=== PATIENT | female | born 1960 | race Caucasian/White ===

== ENCOUNTER 2017-08-05 18:55 | Inpatient (IN) | payer OTHER ==
[~2017-08-05] VITALS: Ht 165.1 cm; Wt 64.3 kg
[~2017-08-05 18:55] MED LIST: FLUTICASONE PRO16 GM; HYDROCODON-ACE1 EAC7 PO; KEFLEX500 MG PO; NAPROSYN500 MG PO; VALIUM5 MG PO; VENLAFAXINE H37.5 M3; VENTOLIN HFA18 GM IH
[2017-08-05 19:57] LABS: HEMATOCRIT 40.3 % (36.0-46.0); HEMOGLOBIN 13.9 G/DL (11.9-15.5); MCH 31.2 PG (29.0-34.0); MCHC 34.5 G/DL (30.0-36.0); MCV 90.6 FL (83-99); PLATELET COUNT 179 K/uL (156-360); RBC DIS.WIDTH-CV 13.2 % (11.8-14.6); RBC DIS.WIDTH-SD 43.5 % (39-53); RED BLOOD COUNT 4.45 M/uL (3.80-5.20); WHITE BLOOD COUNT 5.2 K/uL (4.1-10.2)
[2017-08-05 20:09] LABS: ALBUMIN 4.8 g/dL (3.2-4.8)
[2017-08-05 20:10] LABS: CHLORIDE 106 mEq/L (99-109); POTASSIUM 4.2 mEq/L (3.7-5.4); SODIUM 140 mEq/L (136-147)
[2017-08-05 20:12] LABS: GLUCOSE 109 mg/dL (70-99); TOTAL PROTEIN 7.8 g/dL (6.4-8.3)
[2017-08-05 20:14] LABS: TOTAL BILIRUBIN 0.7 mg/dL (0.0-1.0)
[2017-08-05 20:15] LABS: ALKALINE PHOSPHATASE 278 IU/L (3-129)
[2017-08-05 20:16] LABS: CREATININE 0.9 mg/dL (0.6-1.3); GFR ESTIMATE (CALCULATED) > 59 mL/min/
[2017-08-05 20:17] LABS: AST (GOT) 71 IU/L (2-34); UREA NITROGEN (BUN) 17 mg/dL (9-23)
[2017-08-05 20:19] LABS: ALT (GPT) 130 IU/L (3-49)
[2017-08-05 20:29] LABS: QUANTITATIVE HCG < 4.0 MIU/ML
[2017-08-05 21:16] LABS: APPEARANCE CLOUDY ((CLEAR)); BILIRUBIN NEGATIVE; BLOOD NEGATIVE; COLOR AMBER ((YELLOW)); GLUCOSE (STRIP) NEGATIVE; KETONES 5; LEUKOCYTES MODERATE; NITRITE NEGATIVE; PROTEIN (STRIP) 100; SPECIFIC GRAVITY 1.029 (1.000-1.030)
[2017-08-05 21:59] LABS: EPITHELIAL CELLS 1+ /HPF; RED BLOOD CELLS 0-5 /HPF (0-5)
[2017-08-05 22:00] LABS: BACTERIA 2+ /HPF; MUCUS RARE /LPF; UCUL ADDED? YES
[2017-08-05 22:01] LABS: CALCIUM OXALATE CRYSTALS 2+ /HPF
[2017-08-05 23:29] LABS: AMYLASE 91 IU/L (1-118)
[2017-08-05 23:37] LABS: LIPASE 77 U/L (1.0-51.0)
[2017-08-06 06:15] VITALS: BP 164/94
[2017-08-06] MEDS ORDERED: BENTYL20 MG PO ×2 (11:06→11:14)
[2017-08-06] MEDS ORDERED: LIPITOR20 MG PO (11:07)
[2017-08-06] MEDS ORDERED: CELEXA40 MG PO (11:07)
[2017-08-06] MEDS ORDERED: ZANTAC150 MG PO (11:12)
[2017-08-06 12:07] VITALS: BP 162/92
[2017-08-06 16:01] VITALS: BP 160/95
[2017-08-07 00:08] VITALS: BP 109/70
[2017-08-07 04:00] VITALS: BP 109/78
[2017-08-07 06:02] LABS: BASOPHIL (%) 0.6 % (0-1); EOSINOPHIL COUNT 0.2 K/uL (0-0.3); HEMATOCRIT 38.9 % (36.0-46.0); HEMOGLOBIN 12.4 G/DL (11.9-15.5); IMMATURE GRANULOCYTE (%) 0.2 % (0.0-0.7); LYMPHOCYTE (%) 48.4 % (15-42); LYMPHOCYTE COUNT 2.4 K/uL (1.0-2.8); MCH 29.2 PG (29.0-34.0); MCHC 31.9 G/DL (30.0-36.0); MCV 91.7 FL (83-99); MONOCYTE (%) 9.4 % (3-12); MONOCYTE COUNT 0.5 K/uL (0-0.8); NEUTROPHIL (%) 38.4 % (45-76); NEUTROPHIL COUNT 1.9 K/uL (1.8-6.4); PLATELET COUNT 200 K/uL (156-360); RBC DIS.WIDTH-CV 13.3 % (11.8-14.6); RBC DIS.WIDTH-SD 45.2 % (39-53); RED BLOOD COUNT 4.24 M/uL (3.80-5.20)
[2017-08-07 06:07] LABS: INTER. NORMALIZED RATIO 1.1
[2017-08-07 06:09] LABS: PTT 28.9 SEC (25-37)
[2017-08-07 06:27] LABS: ALBUMIN 4.3 G/DL (3.2-4.8); ALKALINE PHOSPHATASE 190 IU/L (3-129); ALT (GPT) 67 IU/L (3-49); AST (GOT) 32 IU/L (2-34); CHLORIDE 108 MEQ/L (99-109); CREATININE 0.8 MG/DL (0.6-1.3); GFR ESTIMATE (CALCULATED) > 59 mL/min/; GLUCOSE 108 mg/dL (70-99); POTASSIUM 3.9 MEQ/L (3.7-5.4); SODIUM 141 MEQ/L (136-147); TOTAL BILIRUBIN 0.8 MG/DL (0.0-1.0); TOTAL PROTEIN 6.5 G/DL (6.4-8.3); UREA NITROGEN (BUN) 7 mg/dL (9-23)
[2017-08-07 08:00] VITALS: BP 108/76
[2017-08-07 11:15] VITALS: BP 138/79
[2017-08-07 18:20] VITALS: BP 125/79
[2017-08-07 23:10] VITALS: BP 108/59
[2017-08-08 07:22] VITALS: BP 110/73
[2017-08-08 11:09] VITALS: BP 141/86
[2017-08-08 15:50] VITALS: BP 136/80
[2017-08-09 06:57] VITALS: BP 139/80
[2017-08-09] MEDS ORDERED: DURAGESIC12 MCG TD (10:35)
[2017-08-09 11:00] VITALS: BP 156/95
[2017-08-09 11:01] LABS: ALBUMIN 4.1 G/DL (3.2-4.8); ALKALINE PHOSPHATASE 262 IU/L (3-129); ALT (GPT) 61 IU/L (3-49); AST (GOT) 45 IU/L (2-34); CHLORIDE 103 MEQ/L (99-109); CREATININE 0.7 MG/DL (0.6-1.3); GFR ESTIMATE (CALCULATED) > 59 mL/min/; GLUCOSE 107 mg/dL (70-99); POTASSIUM 4.3 MEQ/L (3.7-5.4); SODIUM 137 MEQ/L (136-147); TOTAL BILIRUBIN 2.6 MG/DL (0.0-1.0); TOTAL PROTEIN 6.2 G/DL (6.4-8.3); UREA NITROGEN (BUN) 5 mg/dL (9-23)
[2017-08-09 11:13] LABS: BASOPHIL (%) 0.2 % (0-1); EOSINOPHIL (%) 1.4 % (0-5); EOSINOPHIL COUNT 0.1 K/uL (0-0.3); HEMATOCRIT 34.7 % (36.0-46.0); HEMOGLOBIN 11.9 G/DL (11.9-15.5); IMMATURE GRANULOCYTE (%) 0.3 % (0.0-0.7); LYMPHOCYTE (%) 16.5 % (15-42); LYMPHOCYTE COUNT 1.1 K/uL (1.0-2.8); MCH 31.2 PG (29.0-34.0); MCHC 34.3 G/DL (30.0-36.0); MCV 91.1 FL (83-99); MONOCYTE (%) 9.8 % (3-12); MONOCYTE COUNT 0.6 K/uL (0-0.8); NEUTROPHIL (%) 71.8 % (45-76); NEUTROPHIL COUNT 4.7 K/uL (1.8-6.4); RBC DIS.WIDTH-CV 13.1 % (11.8-14.6); RBC DIS.WIDTH-SD 43.2 % (39-53); RED BLOOD COUNT 3.81 M/uL (3.80-5.20); WHITE BLOOD COUNT 6.5 K/uL (4.1-10.2)
[2017-08-09 11:22] LABS: PLAT.SUFFICIENCY DECREASED; PLATELET COUNT 125 K/uL (156-360)
[2017-08-09 12:08] LABS: LIPASE 52 U/L (1.0-51.0)
[2017-08-09 15:06] VITALS: BP 124/78
[2017-08-09 22:56] VITALS: BP 113/72
[2017-08-10 06:03] LABS: BASOPHIL (%) 0.5 % (0-1); EOSINOPHIL (%) 4.8 % (0-5); EOSINOPHIL COUNT 0.2 K/uL (0-0.3); HEMATOCRIT 29.9 % (36.0-46.0); IMMATURE GRANULOCYTE (%) 0.2 % (0.0-0.7); LYMPHOCYTE (%) 24.2 % (15-42); LYMPHOCYTE COUNT 1.1 K/uL (1.0-2.8); MCH 30.1 PG (29.0-34.0); MCHC 33.4 G/DL (30.0-36.0); MCV 90.1 FL (83-99); MONOCYTE (%) 8.1 % (3-12); MONOCYTE COUNT 0.4 K/uL (0-0.8); NEUTROPHIL (%) 62.2 % (45-76); NEUTROPHIL COUNT 2.8 K/uL (1.8-6.4); PLATELET COUNT 108 K/uL (156-360); RBC DIS.WIDTH-CV 13.2 % (11.8-14.6); RBC DIS.WIDTH-SD 43.8 % (39-53); RED BLOOD COUNT 3.32 M/uL (3.80-5.20); WHITE BLOOD COUNT 4.4 K/uL (4.1-10.2)
[2017-08-10 06:26] LABS: ALBUMIN 3.4 G/DL (3.2-4.8); ALT (GPT) 56 IU/L (3-49); AST (GOT) 39 IU/L (2-34); CHLORIDE 107 MEQ/L (99-109); CREATININE 0.7 MG/DL (0.6-1.3); GFR ESTIMATE (CALCULATED) > 59 mL/min/; GLUCOSE 108 mg/dL (70-99); POTASSIUM 3.5 MEQ/L (3.7-5.4); SODIUM 141 MEQ/L (136-147); UREA NITROGEN (BUN) 4 mg/dL (9-23)
[2017-08-10 06:27] LABS: ALKALINE PHOSPHATASE 340 IU/L (3-129)
[2017-08-10 07:02] VITALS: BP 109/74
[2017-08-10 14:14] LABS: Flow Clinical Information NOT PROVIDED (()); Flow Number of Markers 22 (()); Flow Spec Viability 41 % (())
[2017-08-10 15:35] VITALS: BP 138/86
[2017-08-11 00:28] VITALS: BP 128/80
[2017-08-11 06:48] LABS: BASOPHIL (%) 0.4 % (0-1); EOSINOPHIL (%) 3.6 % (0-5); EOSINOPHIL COUNT 0.1 K/uL (0-0.3); HEMATOCRIT 29.1 % (36.0-46.0); HEMOGLOBIN 9.7 G/DL (11.9-15.5); LYMPHOCYTE (%) 18.1 % (15-42); LYMPHOCYTE COUNT 0.5 K/uL (1.0-2.8); MCH 29.8 PG (29.0-34.0); MCHC 33.3 G/DL (30.0-36.0); MCV 89.3 FL (83-99); MONOCYTE (%) 12.3 % (3-12); MONOCYTE COUNT 0.3 K/uL (0-0.8); NEUTROPHIL (%) 65.6 % (45-76); NEUTROPHIL COUNT 1.8 K/uL (1.8-6.4); PLATELET COUNT 109 K/uL (156-360); RBC DIS.WIDTH-CV 13.5 % (11.8-14.6); RBC DIS.WIDTH-SD 44.5 % (39-53); RED BLOOD COUNT 3.26 M/uL (3.80-5.20); WHITE BLOOD COUNT 2.8 K/uL (4.1-10.2)
[2017-08-11 07:00] VITALS: BP 123/77
[2017-08-11 09:21] LABS: ALBUMIN 3.4 G/DL (3.2-4.8); ALT (GPT) 45 IU/L (3-49); AST (GOT) 29 IU/L (2-34); CHLORIDE 106 MEQ/L (99-109); CREATININE 0.6 MG/DL (0.6-1.3); GFR ESTIMATE (CALCULATED) > 59 mL/min/; GLUCOSE 105 mg/dL (70-99); IRON 25 MCG/DL (35-150); POTASSIUM 3.8 MEQ/L (3.7-5.4); SODIUM 139 MEQ/L (136-147); TOTAL BILIRUBIN 6.4 MG/DL (0.0-1.0); TOTAL PROTEIN 5.3 G/DL (6.4-8.3); TRANSFERRIN (TIBC) 182.3 mg/dL (215-380); TRANSFERRIN SATUR. 14 % (20-55); UREA NITROGEN (BUN) 5 mg/dL (9-23)
[2017-08-11 09:25] LABS: ALKALINE PHOSPHATASE 519 IU/L (3-129)
[2017-08-11 09:33] LABS: LIPASE 76 U/L (1.0-51.0)
[2017-08-11 15:23] LABS: APPEARANCE CLEAR ((CLEAR)); BILIRUBIN NEGATIVE; BLOOD SMALL; COLOR YELLOW ((YELLOW)); GLUCOSE (STRIP) NEGATIVE; KETONES NEGATIVE; LEUKOCYTES NEGATIVE; NITRITE NEGATIVE; PROTEIN (STRIP) NEGATIVE; SPECIFIC GRAVITY 1.002 (1.000-1.030); UROBILINOGEN 0.2 MG/DL (0.2-1.0)
[2017-08-11 15:32] VITALS: BP 123/80
[2017-08-11 15:56] LABS: BACTERIA NONE SEEN /HPF; EPITHELIAL CELLS RARE /HPF; MUCUS NONE SEEN /LPF; RED BLOOD CELLS 0-5 /HPF (0-5); WHITE BLOOD CELLS 0-5 /HPF (0-5)
[2017-08-11 23:48] VITALS: BP 127/74
[2017-08-12 06:13] LABS: HEMATOCRIT 29.6 % (36.0-46.0); MCH 30.2 PG (29.0-34.0); MCHC 33.8 G/DL (30.0-36.0); MCV 89.4 FL (83-99); PLATELET COUNT 108 K/uL (156-360); RBC DIS.WIDTH-CV 14.1 % (11.8-14.6); RBC DIS.WIDTH-SD 45.9 % (39-53); RED BLOOD COUNT 3.31 M/uL (3.80-5.20); WHITE BLOOD COUNT 2.2 K/uL (4.1-10.2)
[2017-08-12 06:30] LABS: CHLORIDE 107 MEQ/L (99-109); CREATININE 0.7 MG/DL (0.6-1.3); GFR ESTIMATE (CALCULATED) > 59 mL/min/; GLUCOSE 110 mg/dL (70-99); POTASSIUM 3.9 MEQ/L (3.7-5.4); SODIUM 139 MEQ/L (136-147); UREA NITROGEN (BUN) 4 mg/dL (9-23)
[2017-08-12 07:00] LABS: ANISOCYTOSIS 1+; BASOPHIL (%) 0.5 % (0-1); EOSINOPHIL COUNT 0.1 K/uL (0-0.3); IMMATURE GRANULOCYTE (%) 0.5 % (0.0-0.7); LYMPHOCYTE (%) 25.7 % (15-42); LYMPHOCYTE COUNT 0.6 K/uL (1.0-2.8); MICROCYTOSIS 1+; MONOCYTE (%) 19.8 % (3-12); MONOCYTE COUNT 0.4 K/uL (0-0.8); NEUTROPHIL (%) 48.5 % (45-76); NEUTROPHIL COUNT 1.1 K/uL (1.8-6.4)
[2017-08-12 07:05] VITALS: BP 121/78
[2017-08-12 07:34] LABS: ALBUMIN 3.5 G/DL (3.2-4.8); ALKALINE PHOSPHATASE 1004 IU/L (3-129); ALT (GPT) 61 IU/L (3-49); AST (GOT) 60 IU/L (2-34); DIRECT BILIRUBIN 3.2 mg/dL (0.0-0.3); TOTAL BILIRUBIN 6.1 MG/DL (0.0-1.0); TOTAL PROTEIN 5.5 G/DL (6.4-8.3)
[2017-08-12 11:03] VITALS: BP 102/50
[2017-08-12 13:55] VITALS: BP 130/94
== END 2017-08-12 14:10 | disposition short-term general hospital (02) | DRG 435 ==
LOC: EME 18:55 → EDOF 08-06 03:20 → 5EAST 08-06 03:20 → ENRESERV 08-06 03:24 → 5EAST 08-06 05:54
PROVIDERS: Family Medicine Sports Medicine; Internal Medicine Gastroenterology
PROC: 0DJ08ZZ Inspection of Upper Intestinal Tract, Via Natural or Artificial Opening Endoscopic (ICD-10-PCS; principal; 2017-08-07)
PROC: 0FBG3ZX Excision of Pancreas, Percutaneous Approach, Diagnostic (ICD-10-PCS; 2017-08-08)
DX: C25.9 Malignant neoplasm of pancreas, unspecified (principal); G89.18 Other acute postprocedural pain; K83.1 Obstruction of bile duct; I81 Portal vein thrombosis; D61.818 Other pancytopenia; E87.6 Hypokalemia; K29.60 Other gastritis without bleeding; K29.80 Duodenitis without bleeding; J44.9 Chronic obstructive pulmonary disease, unspecified; K21.9 Gastro-esophageal reflux disease without esophagitis; E11.9 Type 2 diabetes mellitus without complications; E78.5 Hyperlipidemia, unspecified; F32.9 Major depressive disorder, single episode, unspecified; F41.1 Generalized anxiety disorder; I10 Essential (primary) hypertension; I25.10 Atherosclerotic heart disease of native coronary artery without angina pectoris; G89.29 Other chronic pain; M54.5 Low back pain; F17.200 Nicotine dependence, unspecified, uncomplicated
CPT/HCPCS: 71046; 71260; 74177; 76705; 77012; 80048; 80053; 80076; 81003; 82150; 82948; 83540; 83690; 84466; 84702; 85025; 85027; 85610; 85730; 86301 90; 87086; 88305; 88341 TC; 88342 TC; 94640; 94640 76; 99202; 99281; 99284; J1170; J1650; J1885; J2060; J2250; J2405; J3010; J7030; J7042

== ENCOUNTER 2017-09-01 15:45 | Day surgery (SDC) | payer OTHER ==
[~2017-09-01] VITALS: Ht 165.1 cm; Wt 52.2 kg
[~2017-09-01 15:45] MED LIST changes: +BENTYL20 MG PO; +CELEXA40 MG PO; +DURAGESIC12 MCG TD; +LIPITOR20 MG PO; +ULTRAM50 MG PO; +ZANTAC150 MG PO
[2017-09-01 16:03] VITALS: BP 143/96
[2017-09-01 16:31] LABS: INTER. NORMALIZED RATIO 1.1
[2017-09-01 21:35] VITALS: BP 143/95
[2017-09-01 22:05] VITALS: BP 154/98
== END 2017-09-01 22:15 | disposition home or self-care (01) ==
LOC: SDC 15:45
PROVIDERS: Surgery
DX: I87.8 Other specified disorders of veins (principal); C25.9 Malignant neoplasm of pancreas, unspecified
CPT/HCPCS: 71045; 85610; 85730; C1751; C1769; J0690; J2250

== ENCOUNTER 2017-11-19 18:54 | Emergency (ER) | payer OTHER ==
[~2017-11-19] VITALS: Ht 162.6 cm; Wt 48.5 kg
[~2017-11-19 18:54] MED LIST changes: +XARELTO20 MG PO; +[UNRECOGNIZED DRUG - REMARK]
[2017-11-19 19:13] LABS: BASOPHIL (%) 0.1 % (0-1); EOSINOPHIL (%) 0.6 % (0-5); HEMATOCRIT 31.8 % (36.0-46.0); IMMATURE GRANULOCYTE (%) 0.3 % (0.0-0.7); LYMPHOCYTE (%) 6.4 % (15-42); LYMPHOCYTE COUNT 0.4 K/uL (1.0-2.8); MCH 32.4 PG (29.0-34.0); MCHC 34.6 G/DL (30.0-36.0); MCV 93.5 FL (83-99); MONOCYTE (%) 8.1 % (3-12); MONOCYTE COUNT 0.6 K/uL (0-0.8); NEUTROPHIL (%) 84.5 % (45-76); NEUTROPHIL COUNT 5.9 K/uL (1.8-6.4); PLATELET COUNT 217 K/uL (156-360); RBC DIS.WIDTH-SD 55.1 % (39-53); WHITE BLOOD COUNT 6.9 K/uL (4.1-10.2)
[2017-11-19 19:25] LABS: CHLORIDE 108 mEq/L (99-109); POTASSIUM 3.7 mEq/L (3.7-5.4); SODIUM 138 mEq/L (136-147)
[2017-11-19 19:29] LABS: GLUCOSE 119 mg/dL (70-99)
[2017-11-19 19:31] LABS: CREATININE 0.8 mg/dL (0.6-1.3); GFR ESTIMATE (CALCULATED) > 59 mL/min/
[2017-11-19 19:32] LABS: UREA NITROGEN (BUN) 13 mg/dL (9-23)
[2017-11-19 21:54] LABS: MAGNESIUM 1.7 mg/dL (1.3-2.7)
[2017-11-19 22:02] LABS: LIPASE 175 U/L (1.0-51.0)
[2017-11-19 23:14] LABS: ALBUMIN 4.3 g/dL (3.2-4.8)
[2017-11-19 23:19] LABS: TOTAL BILIRUBIN 0.7 mg/dL (0.0-1.0)
[2017-11-19 23:20] LABS: ALKALINE PHOSPHATASE 105 IU/L (3-129)
[2017-11-19 23:22] LABS: AST (GOT) 26 IU/L (2-34)
[2017-11-19 23:23] LABS: ALT (GPT) 33 IU/L (3-49); DIRECT BILIRUBIN 0.3 mg/dL (0.0-0.3)
[2017-11-20 00:53] LABS: APPEARANCE CLEAR ((CLEAR)); BILIRUBIN NEGATIVE; BLOOD NEGATIVE; COLOR YELLOW ((YELLOW)); GLUCOSE (STRIP) NEGATIVE; KETONES 5; LEUKOCYTES NEGATIVE; NITRITE NEGATIVE; PROTEIN (STRIP) NEGATIVE; SPECIFIC GRAVITY 1.017 (1.000-1.030); UCUL ADDED? NO; UROBILINOGEN 0.2 MG/DL (0.2-1.0)
[2017-11-20] MEDS ORDERED: ZOFRAN ODT4 MG PO (02:07)
[2017-11-20 02:39] VITALS: BP 108/67
== END 2017-11-20 02:40 | disposition home or self-care (01) ==
LOC: EME 18:54
DX: K85.90 Acute pancreatitis without necrosis or infection, unspecified (principal); R50.9 Fever, unspecified; T45.1X5A Adverse effect of antineoplastic and immunosuppressive drugs, initial encounter; C25.9 Malignant neoplasm of pancreas, unspecified; Z92.21 Personal history of antineoplastic chemotherapy; E78.5 Hyperlipidemia, unspecified; K21.9 Gastro-esophageal reflux disease without esophagitis; Z72.0 Tobacco use; Z79.01 Long term (current) use of anticoagulants
CPT/HCPCS: 76705; 80048; 80076; 81003; 83605; 83690; 83735; 85025 91; 99281; 99285; J2405; J3010; J7040